=== PATIENT | male | born 1950 | race Caucasian/White ===

== ENCOUNTER 2016-04-04 16:42 | Emergency (ER) | payer OTHER ==
[~2016-04-04] VITALS: Ht 172.7 cm; Wt 85.1 kg
[2016-04-04 17:26] LABS: BASOPHILS % (AUTO) 1 % (0-2); EOSINOPHILS # (AUTO) 0.2 10^3uL; EOSINOPHILS % (AUTO) 2 % (0-4); LYMPHOCYTES # (AUTO) 2.1 X10^3; MEAN CORPUSCULAR HGB CONC 35.4 g/dL (31.0-37.0); MEAN CORPUSCULAR VOLUME 89 FL (80-100); MEAN PLATELET VOLUME 11.1 FL (6.0-9.5); MONOCYTES # (AUTO) 0.8 X10^3; MONOCYTES % (AUTO) 13 % (3-11); NEUTROPHILS # (AUTO) 3.3 X10^3; NEUTROPHILS % (AUTO) 51 % (51-67); PLATELET COUNT 155 10^3uL (150-450); WHITE BLOOD COUNT 6.39 10^3uL (4.0-11.0)
[2016-04-04 17:33] LABS: MEAN CORPUSCULAR HEMOGLOBIN 31.6 PG (26.0-34.0)
[2016-04-04 17:43] LABS: ALBUMIN 4.3 g/dL (3.4-5.0); CALCULATED IONIZED CALCIUM 3.9 mg/dL (3.8-4.6); TOTAL PROTEIN 7.3 g/dL (6.4-8.5)
[2016-04-04 18:35] VITALS: BP 149/77
== END 2016-04-04 18:36 | disposition home or self-care (01) ==
LOC: ED 16:45
DX: R07.89 Other chest pain (principal)
CPT/HCPCS: 36415; 80053; 84484; 85025; 93005; 93010; 99283

== ENCOUNTER → 2016-07-01 | Outpatient (CLI) | payer OTHER ==
[~2016-07-01] MED LIST: ATOR40TA2 PO; FNST5T PO; TAMS0.4C2 PO
[2016-07-01 12:14] LABS: BILIRUBIN,URINE Negative (Negative); CLARITY,URINE Clear; COLOR,URINE Yellow; GLUCOSE, URINE (UA) Negative (Negative); LEUKOCYTE ESTERASE ,URINE Negative (Negative); UROBILINOGEN,URINE 0.2 mg/dL (0.2-1.0)
[2016-07-01 12:41] LABS: URINE CENTRIFUGED VOLUME 10 mL
[2016-07-01 12:42] LABS: RBC,URINE >100 /HPF
== END ==
LOC: LAB 11:52
PROVIDERS: ATTEND Family Medicine
DX: R31.0 Gross hematuria (principal); N41.0 Acute prostatitis
CPT/HCPCS: 36415; 81003; 81015; 84153; 88112

== ENCOUNTER → 2016-07-03 | Outpatient (CLI) | payer OTHER ==
--- NOTE | 2016-07-03 10:44 | Diagnostic Imaging Report ---
PROCEDURE: CT abdomen and pelvis without contrast. TECHNIQUE: Multiple contiguous axial images were obtained through the abdomen and pelvis without the use of intravenous contrast. INDICATION: Hematuria. FINDINGS: The lung bases are clear. Liver appears normal. The gallbladder is present. Spleen appears normal. Pancreas appears normal. Adrenals are normal. There is no mass, calculus or hydronephrosis in either kidney. Ureters are clear. Urinary bladder wall appears thickened. Prostate is mildly enlarged. There is large amount of stool in the colon. Small bowel is unremarkable. The appendix is not seen. There are degenerative changes in the lumbar spine. IMPRESSION: Mildly enlarged prostate. Thickening of urinary bladder wall could be due to bladder outlet obstruction versus cystitis. The kidneys and ureters were unremarkable. Dictated by: Dictated on workstation # [id number]
== END ==
LOC: RAD 09:36
PROVIDERS: ATTEND Family Medicine
DX: N13.2 Hydronephrosis with renal and ureteral calculous obstruction (principal); R31.0 Gross hematuria
CPT/HCPCS: 74176